=== PATIENT | female | born 1995 | race Two or more races ===

== ENCOUNTER 2017-03-13 14:49 | Emergency (ER) | payer MEDICAID ==
[~2017-03-13] VITALS: Ht 160 cm; Wt 67.1 kg
[2017-03-13 15:04] VITALS: BP 116/73
== END 2017-03-13 16:33 | disposition home or self-care (01) ==
LOC: EDBD 14:49 → ER 14:49
DX: J20.9 Acute bronchitis, unspecified (principal)